=== PATIENT | male | born 1980 | race Caucasian/White ===

== ENCOUNTER 2025-03-04 11:34 | Outpatient (AMB) | payer BC, SELFPAY ==
--- OUTSIDE RECORDS SUMMARY | 2022-09-09 12:10 | XMS_ITS | Encounter Summary ---
Author Organization [facility] Address [address] [place] [phone] Phone Care Team Providers Care College And Career Counselor Name Role Phone Pcp, Unknown Primary Care Provider Unavailabl e Encounter Details Date Type Department Care Team (Late st Contact Info) Description 09/09/2022 12:10 PM EDT Hospital Encounter [facility] [address] [place] [id number] Radha Oneal FNP [address] [place] [id number] [email or web address] Social History Tobacco Use Types Packs/Day Years Used Date Smoking Tobacco: Never Passive Smoke Exposure: Past Smokeless Tobacco: Never Education Answer Date Recorded Are you interested in more education? Not on arnulfo e 10/04/2022 Are you concerned about learning? Not on file 10/04/2022 No 10/04/2022 No 10/04/2022 Digital Access Answer Date Recorded No 11/01/2022 No 11/01/2022 Reliable internet access at home? Not on file 11/01/2022 Device with a working camera? Not on file Sex and Gender Information Value Date Recorded Sex Assigned at Not on file Legal Sex Male 9:25 PM EDT Gender Identity Not on file Sexual Orientation Not on file documented as of this encounter Plan of Treatment Not on file documented as of this encounter Procedures Procedure Name Priority Date/Time Associated Diagnosis Comments XR CHEST PA AND LATERAL 2 VIEWS Urgent/patient waiting 09/09/2022 12:15 PM EDT Persistent cough documented in this encounter Results * XR CHEST PA AND LATERAL 2 VIEWS (09/09/2022 12:15 PM EDT) Anatomical Region Laterality Modality Chest Computed Radiogr aphy 09/09/2022 12:1 7 PM EDT Impressions 09/09/2022 12:19 PM EDT No acute abnormality. Narrative 09/09/2022 12:19 PM EDT Reason for exam (per EHR order): * Cough, persistent; uri with sob and productive cough. hx pneumonia x 4 and covid pneumonia 6 mos ago. TECHNIQUE: Chest frontal and lateral views. COMPARISON: Chest radiograph 12/28/2007. FINDINGS: No focal consolidation, pulmonary edema, pleural effusion or pneumothorax. Heart and mediastinum are within normal limits. No acute osseous abnormality. Procedure Note Esvin Quintero MD - 09/09/2022 Reason for exam (per EHR order): * Cough, persistent; uri with sob andproductive cough. hx pneumonia x 4 and covid pneumonia 6 mos ago. TECHNIQUE: Chest frontal and lateral views. COMPARISON: Chest radiograph 12/28/2007. FINDINGS: No focal consolidation, pulmonary edema, pleural effusion orpneumothorax. Heart and mediastinum are within normal limits. No acute osseous abnormality. IMPRESSION: No acute abnormality. Radha Oneal CLIMATOLOGY PROFESSOR IMG XR CHEST Final Resul t documented in this encounter Visit Diagnoses Not on filedocumented in this encounter Additional Health Concerns Infection Onset Date Last Indicated Resolved Time CoV-Risk 09/09/2022 09/09/2022 09/20/2022 1:24 AM EDT Influenza B 09/09/2022 09/09/2022 09/16/2022 1:22 AM EDT CoV-Risk 08/17/2023 08/17/2023 08/28/2023 1:23 AM EDT CoV-Risk 12/04/2023 12/04/2023 12/15/2023 1:22 AM EDT documented as of this encounter Care Teams College And Career Counselor Relationship Specialty Start Date End Date Pcp, Unknown PCP - General 09/09/22 12/03/23 documented as of this encounter Additional Source Comments The information contained in this document represents components of the legal health record. It is not the complete legal health record.[facility]
--- OUTSIDE RECORDS SUMMARY | 2023-12-04 17:35 | XMS_ITS | Encounter Summary ---
Author Organization [facility] Address [address] [place] [phone] Phone Care Team Providers Care Back Tender Insulation Board Name Role Phone Martina Gary Primary Care P irwin Encounter Details Date Type Department Care Team (Late st Contact Info) Description 12/04/2023 5:35 PM EDT Hospital Encounter [facility] [address] [place] [id number] Donya Martell CNP [address] [place] [phone] [email or web address] Social History Tobacco Use Types Packs/Day Years [...] PA AND LATERAL 2 VIEWS Urgent/patient waiting 12/04/2023 5:52 PM EDT Cough documented in this encounter Results * XR CHEST PA AND LATERAL 2 VIEWS (12/04/2023 5:52 PM EDT) Anatomical Region Laterality Modality Chest Computed Radiogr aphy 12/04/2023 5:54 PM EDT Impressions 12/04/2023 5:55 PM EDT No acute findings. Narrative 12/04/2023 5:55 PM EDT XR CHEST PA AND LATERAL 2 VIEWS Referring clinician's provided indication for this examination in [facility]: Cough; congested bibasilar COMPARISON: September 09, 2022 FINDINGS: Lungs: Clear lungs. Pleura: No pleural effusion. No pneumothorax Heart/Mediastinum: Heart size normal. Bones/Soft Tissues: No acute finding Procedure Note Demetri Murphy MD, DENZEL - 12/04/2023 XR CHEST PA AND LATERAL 2 VIEWS Referring clinician's provided indication for this examination in [facility]:Cough; congested bibasilar COMPARISON: September 09, 2022 FINDINGS: Lungs: Clear lungs. Pleura: No pleural effusion. No pneumothorax Heart/Mediastinum: Heart size normal. Bones/Soft Tissues: No acute finding IMPRESSION: No acute findings. Donya Martell SUBWAY CAR REPAIRER IMG XR CHEST Final Resul t documented in this encounter Visit Diagnoses Not on filedocumented in this encounter Additional Health Concerns Infection Onset Date Last Indicated Resolved Time CoV-Risk 12/04/2023 12/04/2023 12/15/2023 1:22 AM EDT documented as of this encounter Care Teams Back Tender Insulation Board Relationship Specialty Start Date End Date Martina Gary PA [employer] [address] [phone] PCP - General Physician Zoogler 12/04/23 documented as of this encounter Additional Source Comments The information contained in this document represents components of the legal health record. It is not the complete legal health record.[facility]
--- OUTSIDE RECORDS SUMMARY | 2024-06-04 13:09 | XMS_ITS | Encounter Summary ---
Author Organization [facility] Address [address] [place] [phone] Phone Care Team Providers Care Fermenter Name Role Phone Martina Gary Primary Care P irwin Encounter Details Date Type Department Care Team (Late st Contact Info) Description 06/04/2024 12:09 PM EST Hospital Encounter [facility] [address] [place] [phone] Belia Latif, ASSISTANT CONTROLLER [address] [place] [address] [email or web address] Social History Tobacco Use Types Packs/Day Years [...] Name Priority Date/Time Associated Diagnosis Comments XR RIBS 3 OR MORE VIEWS WITH PA CHEST (LEFT) Urgent/patient waiting 06/04/2024 12:19 PM EST Rib pain documented in this encounter Results * XR RIBS 3 OR MORE VIEWS WITH PA CHEST (LEFT) (06/04/2024 12:19 PM EST) Anatomical Region Laterality Modality Chest Computed Radiogr aphy 06/04/2024 12:5 3 PM EST Impressions 06/04/2024 12:55 PM EST Mild irregularity of the anterior left eighth and ninth ribs, nondisplaced fractures. No other acute cardiopulmonary abnormality. Narrative 06/04/2024 12:55 PM EST XR RIBS 3 OR MORE VIEWS WITH PA CHEST (LEFT) Referring clinician's provided indication for this examination in [facility]: Pain; S/P Fall COMPARISON: XR CHEST PA AND LATERAL 2 VIEWS FINDINGS: There is mild irregularity of the anterior left eighth and ninth ribs, nondisplaced fractures. PA evaluation of the chest demonstrates no focal consolidation, pleural effusion, pulmonary edema, or pneumothorax. Cardiomediastinal silhouette is normal. Procedure Note Yancy Díaz MD, PhD - 06/04/2024 XR RIBS 3 OR MORE VIEWS WITH PA CHEST (LEFT) Referring clinician's provided indication for this examination in [facility]:Pain; S/P Fall COMPARISON: XR CHEST PA AND LATERAL 2 VIEWS FINDINGS: There is mild irregularity of the anterior left eighth and ninth ribs,nondisplaced fractures. PA evaluation of the chest demonstrates no focal consolidation, pleuraleffusion, pulmonary edema, or pneumothorax. Cardiomediastinal silhouetteis normal. IMPRESSION: Mild irregularity of the anterior left eighth and ninth ribs, nondisplacedfractures. No other acute cardiopulmonary abnormality. Belia Latif ASSISTANT CONTROLLER IMG XR CHEST Final R esult documented in this encounter Visit Diagnoses Not on filedocumented in this encounter Care Teams Fermenter Relationship Specialty Start Date End Date Martina Gary PA [employer] [address] [phone] PCP - General Physician Ceramic Tile Setter 12/04/23 documented as of this encounter Additional Source Comments The information contained in this document represents components of the legal health record. It is not the complete legal health record.[facility]
--- NOTE | 2025-03-04 11:38 | A.OFFPC_ITS ---
Vital Signs 03/04/25 11:44 Height 5 ft 8.39 in Weight 356 lb BMI 53.5 BP 138/76 Blood Pressure Location Rt brachial Position Sitting Respiration 16 Pulse 93 Pulse Source Pulse Oximeter Temp 98.7 F Temp Source Oral Pulse Oximetry (%) 97 Oxygen Delivery Method Room Air Intake Visit Reasons: est care Intake Note: New patient visit Resident Hall Director Required: No Allergies Iodinated Contrast Media (Contrast Dye) Allergy (Severe, Verified 03/04/25 11:41) throat swelling shellfish derived (shellfish) Allergy (Unknown, Verified 03/04/25 11:41) Unknown Sulfa (Sulfonamide Antibiotics) (SULFA(SULFONAMIDE ANTIBIOTICS)) Allergy (Unknown, Unverified 02/24/20 16:51) UNKNOWN Tobacco use date assessed: 03/04/25 Dental Screening Dental Screen Date: 03/04/25 Did you have a dental visit in the last 12 months?: Yes Did you have a dental problem in the last 6 months where you did not have access to dental care?: No Was dental information given to patient?: Patient has dentist HPI HPI Comments History of Present Illness Details The patient is a 45 year old male with a past medical history of prediabetes, obesity, RON, post traumatic stress, nightmares, ED presenting to [facility]. [place] [facility] Saw gastroenterology last year for consideration of colonoscopy-this was never booked. He is getting very anxious about this as multiple members of his family have colon cancer Diagnosed with RON 5 years ago. Did not trial cpap. Then lost 70 pounds and did not seem to be snoring. Still waking up multiple times per night. He has put weight back on BH: Anxiety, some depression, PTSD-completed 3 years of therapy. Exwife became with another man, had an -found this out through his insurance at the time. Messy divorce. Now in a stable relationship. He has terrible nightmares ROS CONSTITUTIONAL: Denies weight loss, fever and chills. HEENT: Denies changes in vision and hearing. RESPIRATORY: Denies SOB and cough. CV: Denies palpitations and CP GI: Denies abdominal pain, nausea, vomiting and diarrhea. : Denies dysuria and urinary frequency. MSK: Denies new myalgia and joint pain. SKIN: Denies rash and pruritus. NEUROLOGICAL: Denies headache PSYCHIATRIC: Denies recent changes in mood. PHYSICAL EXAM: GENERAL: Alert and oriented x 3. NAD EYES: EOMI. Anicteric. HENT: Moist mucous membranes. No scleral icterus. No cervical lymphadenopathy. LUNGS: Clear to auscultation bilaterally. CARDIOVASCULAR: Regular rate and rhythm. No murmur. No JVD. ABDOMEN: Soft, non-tender +bs EXTREMITIES: No edema. Non-tender. SKIN: No rashes or lesions. Warm. NEUROLOGIC: No focal neurological deficits. CN II-XII grossly intact PSYCHIATRIC: Cooperative. Appropriate mood and affect [facility] Surgical History H/O removal of cyst Hx of appendectomy Family History Mother TIA (transient ischemic attack) Father Skin cancer Sister Cancer of colon Paternal Grandmother Cancer of colon Skin cancer Maternal Grandfather No problems noted. Paternal Grandfather Cancer of colon Skin cancer Social History Housing: House Alcohol intake: current Patient Tobacco Use Status: Never used Tobacco e-Cigarette/Vaping Use: Never Used Second Hand Smoke Exposure: Yes (about 10 years a kid) Substance Use Type: Former Substance User and Marijuana service: No Current occupational status: employed Current occupation: listedplacesmail distribution clerk Current occupational exposures/hazards: No Cognitive needs: No Hearing needs: No Vision needs: No Questionnaire PHQ-9 Over the last 2 weeks, how often have you been bothered by any of the following problems? 1. Little interest or pleasure in doing things: not at all 2. Feeling down, depressed, or hopeless: not at all 3. Trouble falling or staying asleep, or sleeping too much: several days 4. Feeling tired or having little energy: several days 5. Poor appetite or overeating: more than half the days 6. Feeling bad about yourself - or that you are a failure or have let yourself or your family down: not at all 7. Trouble concentrating on things, such as reading the newspaper or watching television: not at all 8. Moving or speaking so slowly that other people could have noticed. Or the opposite - being so fidgety or restless that you have been moving around a lot more than usual: not at all 9. Thoughts that you would be better off or of hurting yourself in some way: not at all Total score: 4 Depression Screening Interpretation: Positive Depression Screening Follow-up: Existing condition and New Medication prescribed Depression Screening Done: Yes 73974 - PHQ-9 Billing: Yes Source: Developed by Drs. Tripp Ybarra, Rajni Ward, Damon Gallegos and colleagues, with an educational anna from [employer]. Thrive Questionnaire Date Thrive assessed: 03/04/25 I am a: Patient What is your living situation today?: I have a steady place to live Within the past 12 months, did the food you bought not last and you didn't have the money to get more?: Never true Within the past 12 months, did you worry whether your food would run out before you got money to buy more?: Never true Do you have trouble paying for medicines?: No Do you have trouble getting transportation to medical appointments?: No Do you have trouble paying your heating and electricity bill?: No Do you have trouble taking care of your child, family member or friend?: No Do you have trouble with day-to-day activities such as bathing, preparing meals, shopping, managing finances, etc.?: No Are you currently unemployed and looking for a job?: No Are you interested in more education?: No Please select the resources that you would like help with: None Currently or been in a relationship where the following occur: No concerns reported THRIVE Score: 0 AUDIT C Alcohol Use Questionnaire (AUDIT-C) 1. How often do you have a drink containing alcohol?: 4 or more times a week 2. How many drinks containing alcohol do you have on a typical day when you are drinking?: 1 or 2 3. How often do you have six or more drinks on one occasion?: Monthly Total Score: 6 BRIDGET-7 AMB Questionnaire BRIDGET-7 Date BRIDGET - 7 assessed: 03/04/25 Feeling nervous, anxious, or on edge: 0 = Not at all Not being able to stop or control worryin = Several days Worrying too much about different things: 1 = Several days Trouble relaxin = Several days Being so restless that it is hard to sit still: 1 = Several days Becoming easily annoyed or irritable: 0 = Not at all Feeling afraid as if something awful might happen: 0 = Not at all Total BRIDGET-7 score (0-4 normal; 5-9 mild; 10-14 moderate; 15-21 severe): 4 Source: Developed by Drs. Tripp Ybarra, Rajni Ward, Damon Gallegos and colleagues, with an educational anna from [employer]. BRIDGET-7 Assessment Billing BRIDGET-7 Assessment Tool: BRIDGET-7 Assessment 26698 Physical exam (Primary Care) Vital Signs: Last Vital Signs Temp 98.7 F 03/04/25 11:44 Pulse 93 03/04/25 11:44 Resp 16 03/04/25 11:44 BP 138/76 03/04/25 11:44 Pulse Ox 97 03/04/25 11:44 Oxygen Delivery Method Room Air 03/04/25 11:44 BMI result Body Mass Index 53.5 Tobacco/Smoking Status: Tobacco use Status Tobacco use date assessed 03/04/25 03/04/25 11:46 Patient Tobacco Use Status Never used Tobacco 03/04/25 11:46 e-Cigarette/Vaping Use Never Used 03/04/25 11:46 PHQ-9: PHQ-9 Score PHQ-9: Total score 4 03/04/25 11:46 Depression Screening Interpretation: Positive Depression Screening Follow-up: Existing condition and New Medication prescribed Currently or been in a relationship where the following occur: No concerns reported Coding Level of Care Code New Pt Level 4 (25189) Complex EM visit Add On G2211 Diagnoses Encounter to establish care Z76.89 Prediabetes R73.03 RON (obstructive sleep apnea) G47.33 Family history of colon cancer Z80.0 Additional Codes BRIDGET-7 Assessment Billing - BRIDGET-7 Assessment Tool: BRIDGET-7 Assessment 90295 ([id number]) PHQ-9 - 53777 - PHQ-9 Billing: Yes ([id number]) Assessment & Plan Assessment & Plan (1) Encounter to establish care: Code(s): Z76.89 - Persons encountering health services in other specified circumstances Category: Medical (2) Prediabetes: Code(s): R73.03 - Prediabetes Category: Medical (3) RON (obstructive sleep apnea): Code(s): G47.33 - Obstructive sleep apnea (adult) (pediatric) Category: Medical (4) Family history of colon cancer: Comment: Dad in 60s Dads dad 48 Moms mom 50s Code(s): Z80.0 - Family history of malignant neoplasm of digestive organs Category: Medical Plan 45 year old to establish care Past medical, surgical, social reviewed Anxiety/nightmares-declines psychiatry referal. Trial prazosin qhs. RON-recheck sleep study. referral sleep medicine Prediabetes-update labs. Efforts toward weight loss. Orders: Orders Complete Blood Count Auto Diff Today G47.33 - Obstructive sleep apnea (adult) (pediatric), N52.9 - Male erectile dysfunction, unspecified, R73.03 - Prediabetes, Z13.0 - Encounter for screening for diseases of the blood and blood-forming organs and certain disorders involving the immune mechanism, Z13.228 - Encounter for screening for other metabolic disorders TSH reflex Free T4 Today G47.33 - Obstructive sleep apnea (adult) (pediatric), N52.9 - Male erectile dysfunction, unspecified, R73.03 - Prediabetes, Z13.0 - Encounter for screening for diseases of the blood and blood-forming organs and certain disorders involving the immune mechanism, Z13.228 - Encounter for screening for other metabolic disorders Vitamin D 25-OH (D2 and D3) Today G47.33 - Obstructive sleep apnea (adult) (pediatric), N52.9 - Male erectile dysfunction, unspecified, R73.03 - Prediabetes, Z13.0 - Encounter for screening for diseases of the blood and blood-forming organs and certain disorders involving the immune mechanism, Z13.228 - Encounter for screening for other metabolic disorders RT home sleep study Today G47.33 - Obstructive sleep apnea (adult) (pediatric) Comprehensive Met. Panel Today G47.33 - Obstructive sleep apnea (adult) (pediatric), N52.9 - Male erectile dysfunction, unspecified, R73.03 - Prediabetes, Z13.0 - Encounter for screening for diseases of the blood and blood-forming organs and certain disorders involving the immune mechanism, Z13.228 - Encounter for screening for other metabolic disorders Lipid Panel Today G47.33 - Obstructive sleep apnea (adult) (pediatric), N52.9 - Male erectile dysfunction, unspecified, R73.03 - Prediabetes, Z13.0 - Encounter for screening for diseases of the blood and blood-forming organs and certain disorders involving the immune mechanism, Z13.228 - Encounter for screening for other metabolic disorders Hemoglobin A1c Today G47.33 - Obstructive sleep apnea (adult) (pediatric), N52.9 - Male erectile dysfunction, unspecified, R73.03 - Prediabetes, Z13.0 - Encounter for screening for diseases of the blood and blood-forming organs and certain disorders involving the immune mechanism, Z13.228 - Encounter for screening for other metabolic disorders Referrals Gastroenterology Referral Z80.0 - Family history of malignant neoplasm of digestive organs Sleep Medicine Referral G47.33 - Obstructive sleep apnea (adult) (pediatric) Medications: New prazosin 2 mg PO BEDTIME 90 caps 1RF lorazepam 1 mg PO DAILY PRN 20 tabs 0RF anxiety albuterol sulfate 90 mcg/actuation (Ventolin HFA) 2 puffs inhalation Q6H PRN 8.5 grams 3RF shortness of breath or wheezing
[2025-03-04 11:44] VITALS: BP 138/76; PULSE 93; RESP 16; TEMP 37.1; O2SAT 97; BMI 53.5
--- OUTSIDE RECORDS SUMMARY | 2025-03-04 13:30 | XMS_ITS | Clinical Summary ---
Author Organization [facility] Address [address] [place] [phone] Care Team Providers Care Printing Plate Maker Name Role Phone Jessica Dickinson MD Primary Care Provider [phone] Surgical History Surgery Date Site/Laterality Comments APPENDECTOMY 11/21/2007 PROCEDURE: HISTORICAL APPENDECTOMY ANKLE SURGERY 2020 Left PROCEDURE: HISTORICAL ANKLE SURGERY; COMMENT: 4 cysts removed from L ankle Family History Medical History Relation Name Comments Hypertension Father Melanoma Father Prostate cancer Father Stroke Mother Uterine cancer Mother Coronary artery disease Paternal Grandfather Prostate cancer Paternal Grandfather Relation Name Status Comments Father Mother Paternal Grandfather Social History Tobacco Use Types Packs/Day Years Used Date Smoking Tobacco: Never Smokeless Tobacco: Never Alcohol Use Standard Drinks/Week Comments Yes 0 (1 standard drink = 0.6 oz pur e alcohol) Sex and Gender Information Value Date Recorded Sex Assigned at Not on file Legal Sex Male 8:19 PM EST Gender Identity Not on file Sexual Orientation Not on file Obstetrics History Plan of Treatment Health Maintenance Due Date Last Done Comments Hepatitis B Vaccines (1 of 3 - 19+ 3-dose series) 1997 Cholesterol Screening (Lipid Panel) 05/19/2022 Colorectal Cancer Screening: Colonoscopy 05/19/2022 HIV Screening 05/19/2022 Hepatitis C Screening 05/19/2022 Social Influencers of Health Screening 05/19/2022 DTaP,Tdap,and Td Vaccines (2 - Td or Tdap) 10/12/2022 10/12/2012 Depression Screening 06/09/2024 COVID-19 Vaccine (3 - 2024-2 6 season) 2025 10/31/2020, 09/29/2020 Influenza Vaccine (#1) 2025 HIB Vaccines Aged Out No longer eligi ble based on patient's age to complete this topic HPV Vaccines Aged Out No longer eligi ble based on patient's age to complete this topic Hepatitis A Vaccines Aged Out No long er eligible based on patient's age to complete this topic IPV Vaccines Aged Out No longer eligi ble based on patient's age to complete this topic MMR Vaccines Aged Out No longer eligi ble based on patient's age to complete this topic Meningococcal ACWY Vaccine Aged Out N o longer eligible based on patient's age to complete this topic Meningococcal B Vaccine Aged Out No l onger eligible based on patient's age to complete this topic Pneumococcal Vaccine: Pediatrics (0 to 5 Years) and At-Risk Patients (6 to 49 Years) Aged Out No longer eligible b ased on patient's age to complete this topic RSV Immunization Patients Under 20 months Aged Out No longer eligible b ased on patient's age to complete this topic Varicella Vaccines Aged Out No longer eligible based on patient's age to complete this topic Care Teams Printing Plate Maker Relationship Specialty Start Date End Date Jessica Dickinson MD PCP - General Internal Medicine 06/06/21
--- OUTSIDE RECORDS SUMMARY | 2025-03-04 13:30 | XMS_ITS | Clinical Summary ---
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 Name Role Phone Martina Gary Primary Care P rovider Allergies Active Allergy Reactions Criticality Noted Date Comments Bee Venom Protein (Honey Bee) Swelling High 03/06/2021 Gadolinium-Containing Contrast Media 09/09/2022 Iodine 09/09/2022 Shellfish Containing Products Nausea And Vomiting 03/06/2021 Sulfa (Sulfonamide Antibiotics) 12/03/2017 Other reaction(s): Swelling of throat, [D]Swelling of ear Sulfamethoxazole-Trime thoprim 09/10/2015 Venom-Honey Bee Anaphylaxis,Swelling High 03/06/2021 Medications albuterol (PROAIR HFA) 90 mcg/actuation inhaler Inhale 2 puffs into the lungs every 4 (four) hours as needed for wheezing. 18 g 3 Active Additional Information Patient not taking.Reported on 12/23/2024 benzonatate (TESSALON) 100 MG capsule Take 2 capsules (200 mg total) by mouth 3 (three) times a day as needed for cough. 21 capsule 3 Active Additional Information Patient not taking.Reported on 12/23/2024 benzonatate (TESSALON) 100 MG capsule Take 2 capsules (200 mg total) by mouth 3 (three) times a day as needed for cough. 21 capsule 4 Active Additional Information Patient not taking.Reported on 12/23/2024 sildenafiL (VIAGRA) 50 mg tablet Take 50 mg by mouth. 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 Severe obesity 12/04/2023 Hemorrhoids 03/11/2021 Libido, decreased 03/11/2021 Encounters Date Type Department Care Team Description 12/23/2024 7:30 PM EDT Office Visit [facility] [address] [id number] Radha Oneal, [id number] Impacted cerumen of left ear (Primary Dx); Acute otitis externa of left ear, unspecified type from Last 3 Months Immunizations No known immunizations Social History Tobacco Use Types Packs/Day Years Used Date Smoking Tobacco: Never Passive Smoke Exposure: Past Smokeless Tobacco: Never Tobacco Cessation:Counseling Given: Not Answered Education Answer Date Recorded Are you interested [...] on file Sexual Orientation Not on file Last Filed Vital Signs Vital Sign Reading Time Taken Comments Blood Pressure 168/82 12/23/2024 7:32 PM EDT Pulse 96 12/23/2024 7:24 PM EDT Temperature 37.1 C (98.8 F) 12/23/2024 7:24 PM EDT Respiratory Rate 18 12/23/2024 7:24 PM EDT Oxygen Saturation 97% 12/23/2024 7:24 PM EDT Inhaled Oxygen Concentration - - Weight 149.7 kg (330 lb) 12/23/2024 7:24 PM EDT Height 175.3 cm (5' 9 ) 08/17/2023 11:06 AM EDT Body Mass Index 48.73 08/17/2023 11:06 AM EDT Plan of Treatment Health Maintenance Due Date Last Done Comments LIPID PANEL 1978 DEPRESSION SCREENING 1990 HEPATITIS C SCREENING 01/19/1996 HIV ONE-TIME SCREENING (18-6 5 YEARS) 01/19/1996 SCREENING FOR DIABETES 2013 Adult Td,Tdap Booster 10/12/2022 10/12/2012 COLOGUARD 2023 COLONOSCOPY 2023 COLORECTAL CANCER SCREENING 2023 FIT TEST 2023 FOBT 2023 SIGMOIDOSCOPY 2023 VIRTUAL COLONOSCOPY 2023 INFLUENZA VACCINE (#1) 2025 COVID-19 VACCINE (2024-2 6 season) 2025 10/31/2020, 09/29/2020 SMOKING STATUS SCREENING (On ce After 26 Yrs) Completed 12/23/2024 HEPATITIS A VACCINES Aged Out No long er eligible based on patient's age to complete this topic HIB VACCINES Aged Out No longer eligi ble based on patient's age to complete this topic MENINGOCOCCAL VACCINES (ACWY) Aged Out No longer eligible based on patient's age to complete this topic MENINGOCOCCAL VACCINES (B) Aged Out N o longer eligible based on patient's age to complete this topic PNEUMOCOCCAL VACCINES (0-49 years) Aged Out No longer eligible b ased on patient's age to complete this topic Medical Devices Not on file Procedures Procedure Name Priority Date/Time Associated Diagnosis Comments EAR CERUMEN REMOVAL Routine 12/23/2024 7 :44 PM EDT Impacted cerumen of left ear from Last 3 Months Results * EAR CERUMEN REMOVAL (12/23/2024 7:44 PM EDT) Other Narrative Radha Oneal FNP - 12/23/2024 7:44 PM EDT Radha Oneal FNP 12/23/2024 7:54 PM Cerumen Removal Date/Time: 12/23/2024 7:44 PM Visualization: Otoscopy Cerumen in: Left ear Removed with: Irrigation Patient tolerated procedure well: Yes Comments: Left TM wnl after irrigation. Ear canal erythematous and swollen [place] Protocol: Verbal consent obtained: Yes Written consent obtained: No Time out: Immediately prior to the procedure, a time out was called to verify that there is a signed consent form and that the correct patient, planned procedure, site and side are consistent with documentation and that necessary equipment and/or blood products are available prior to the start of the case. Radha GOYAL PROCEDURE/MINOR SURGICAL OR DERABLES Final Result from Last 3 Months Insurance [facility] Care Teams Drilling Rig Operator Relationship Specialty Start Date End Date Martina Gary PA [address] [place] [phone] PCP - General Physician Loom Overhauler 12/04/23 Additional Source Comments The information contained in this document represents components of the legal health record. It is not the complete legal health record.[facility]
== END 2025-03-04 12:21 | disposition home or self-care (01) ==
LOC: HO.HMCFM 11:35
PROVIDERS: PCP Internal Medicine; Visit Provider Internal Medicine
DX: Z76.89 Persons encountering health services in other specified circumstances (principal); R73.03 Prediabetes; G47.33 Obstructive sleep apnea (adult) (pediatric); Z80.0 Family history of malignant neoplasm of digestive organs

== ENCOUNTER 2025-03-04 11:34 | Outpatient (REF) | payer BC, SELFPAY ==
[2025-03-04 14:16] LABS: MANUAL DIFF FLAG NO
[2025-03-04 14:36] LABS: Hematocrit 42.8 % (42.0-52.0); Hemoglobin 13.9 g/dl (14.0-18.0); Imm Gran Abs Auto 0.03 X10*3/uL (0.00-0.03); Imm Gran Pct Auto 0.5 % (0.0-0.4); Lymphocytes Absolute Auto 1.6 X10*3/uL (1.2-4.9); Mean Corpuscular HGB Conc 32.5 g/dl (31.0-36.0); Mean Corpuscular Hemoglobin 26.8 pg (27.0-33.0); Mean Corpuscular Volume 82.6 fL (80.0-98.0); NRBC Abs Auto 0.000 X10*3/uL (0.0-0.012); NRBC Pct Auto 0.0 /100WBC (0.0-0.2); Platelet Count 241 X10*3/uL (160-400); Red Blood Count 5.18 X10*6/uL (4.60-5.80); White Blood Count 6.0 X10*3/uL (4.8-10.8)
[2025-03-04 15:06] LABS: Alanine Aminotransferase 60 U/L (0-40); Albumin Level 3.8 g/dL (3.5-5.0); Alkaline Phosphatase 95 U/L (39-117); Anion Gap 10 (12-20); Aspartate Amino Transferase 39 U/L (5-37); Blood Urea Nitrogen 14 mg/dL (9-16); Calcium 8.9 mg/dL (8.4-10.2); Carbon Dioxide 27 mmol/L (22-29); Chloride 107 mmol/L (96-108); Cholesterol 225 mg/dL (<200); Estimated Glomerular Filt Rate > 60; HDL Cholesterol 43 mg/dL (>40); Potassium 3.8 mmol/L (3.3-5.1); Sodium 140 mmol/L (135-145); Total Protein 7.1 g/dL (6.5-8.0); Triglycerides 355 mg/dL (<150)
[2025-03-10 13:23] LABS: Vitamin D 25-OH, D2 <4 ng/mL; Vitamin D 25-OH, D3 21 ng/mL; Vitamin D 25-OH, Total 21 ng/mL (30-100)
== END 2025-03-04 11:35 | disposition home or self-care (01) ==
LOC: HO.WFDLDS 11:34
PROVIDERS: PCP Internal Medicine; Visit Provider Internal Medicine
DX: Z76.89 Persons encountering health services in other specified circumstances (principal); Z13.0 Encounter for screening for diseases of the blood and blood-forming organs and certain disorders involving the immune mechanism; Z13.228 Encounter for screening for other metabolic disorders; R73.03 Prediabetes; G47.33 Obstructive sleep apnea (adult) (pediatric); N52.9 Male erectile dysfunction, unspecified; Z80.0 Family history of malignant neoplasm of digestive organs
CPT/HCPCS: 36415; 80053; 80061; 82306; 83036; 84443; 85025; 96127